=== PATIENT | female | born 1990 | race Caucasian/White ===

== ENCOUNTER 2018-01-22 22:37 | Emergency (ER) | payer MEDICAID, SELFPAY ==
[2018-01-22 22:37] VITALS: BP 157/79; PULSE 84; RESP 16; TEMP 36.6; O2SAT 99; BMI 42.0
--- NOTE | 2018-01-22 23:58 | ED.DCSUM_ITS ---
- ER Visit Summary Date of Service: 01/22/18 Chief Complaint: Epigastric abdominal pain History of Present Illness: The patient is a 27 F waxing waning epigastric abdominal pain since yesterday. Symptoms worsened after awakening today. Nausea without vomiting. No diarrhea. No melena. No NSAID use. States she will use Tylenol. Similar symptoms prior to get started on omeprazole, saw her PCP had this increased to 40 mg. Denies alcohol or illicit drug use. Tobacco history. No spicy foods. No urine symptoms. No chest pain. Physical Examination: General: Alert and oriented ?3, no acute distress HEENT: Normocephalic, atraumatic. Moist mucosa membranes Neck: supple, nontender. Cardiovascular: Regular rate and rhythm, no murmurs Respiratory: Normal breath sounds, symmetric, no distress Abdomen: Soft, nontender, nondistended Extremities: Nontender, no edema, pulses intact ?4 Neuro: no focal neurological deficits. Test Results: [] Emergency Department Course and Treatment: Patient nonsurgical abdomen. History concerns for gastritis symptoms. Denies any melena. Given a GI cocktail, symptoms improved. She will continue her omeprazole, Carafate will be added. She will follow-up with her PCP reevaluation and referral to GI as discussed with previously. She will monitor for melena or hematochezia. Treatment Plan: [] Disposition: Discharge Impression: Acute gastritis This note was generated with [employer] dictation software. It may contain incorrect words, spelling, and punctuation that were not noted in review of the chart prior to signing ED Disposition - Plan for ED Patient: Disposition: Home or Assisted Living Chief Complaint: Abd Pain Diagnosis: Gastritis Instructions: ED PUD Vs Gastritis Prescriptions: Sucralfate [Carafate] 1 gm PO 4X/DAY #560 ml Referrals: Sunil Mack MD [Primary Care Provider] - 3-5 Days
[2018-01-23 00:53] VITALS: BP 142/93; PULSE 68; RESP 16; O2SAT 97
== END 2018-01-23 00:53 | disposition home or self-care (01) ==
LOC: ED 01-23 00:31
PROVIDERS: Emergency Provider Emergency Medicine; Family Provider Family Medicine; PCP Family Medicine
DX: K29.00 Acute gastritis without bleeding (principal); K21.9 Gastro-esophageal reflux disease without esophagitis; F41.9 Anxiety disorder, unspecified; F32.9 Major depressive disorder, single episode, unspecified; Z72.0 Tobacco use; Z79.899 Other long term (current) drug therapy
CPT/HCPCS: 99283

== ENCOUNTER → 2018-03-12 08:13 | Outpatient (CLI) | payer MEDICAID, SELFPAY ==
--- NOTE | 2018-03-12 08:25 | RAD_ITS ---
STUDY: AIR-CONTRAST UPPER GI SERIES. REASON FOR EXAM: Female, 27 years old. Epigastric pain. FLUOROSCOPY TIME (if supplied): (0:09) minutes/seconds TECHNIQUE: The patient ingested barium. Multiple images of the esophagus, stomach and duodenum were obtained. COMPARISON: None. FINDINGS: The esophagus is unremarkable. There is no evidence of obstruction. No mass lesion is seen. The stomach and duodenum are unremarkable. There is no evidence of ulceration. No mass lesion is seen. RAD/Upper GI Series Only IMPRESSION: Unremarkable air-contrast upper GI series. Electronically Signed: Jovany De La Rosa MD at 9:24 EDT Tel [phone], Service support ,
== END ==
PROVIDERS: Family Provider Family Medicine; PCP Family Medicine; Visit Provider Nurse Practitioner Adult Health
DX: R10.13 Epigastric pain (principal)
CPT/HCPCS: 74246

== ENCOUNTER 2018-05-02 16:34 | Emergency (ER) | payer MEDICAID, SELFPAY ==
[2018-05-02 16:37] VITALS: BP 160/92; PULSE 90; PULSE 94; RESP 16; O2SAT 97; O2SAT 98; BMI 38.4
--- NOTE | 2018-05-02 16:46 | RAD_ITS ---
STUDY: X-RAY CHEST REASON FOR EXAM: Female, 27 years old. Chest pain. TECHNIQUE: 2 views COMPARISON: Prior chest radiograph from January 26, 2017 FINDINGS: The lungs are clear and expanded. Calcified granuloma at the right lung base. Normal size heart. Calcified hilar lymph nodes. Normal visualized pulmonary arteries. Normal visualized aortic arch and descending thoracic aorta. Normal visualized thoracic spine. Normal visualized ribs, clavicles, and shoulders. There is no demonstrated abnormality of the visualized soft tissue structures of the upper abdomen. RAD/Chest PA and Lateral IMPRESSION: No acute cardiopulmonary findings. Negative for consolidation, focal atelectasis, cardiomegaly or pleural effusion. Stigmata of old granulomatous disease. Electronically Signed: Jeanne Oneal MD at 17:36 EDT , Service support ,
--- NOTE | 2018-05-02 16:46 | EKG12_ITS ---
Test Reason : CP Blood Pressure : / mmHG Vent. Rate : 090 BPM Atrial Rate : 090 BPM P-R Int : 146 ms QRS Dur : 088 ms QT Int : 388 ms P-R-T Axes : 050 033 026 degrees QTc Int : 474 ms Normal sinus rhythm Normal ECG Confirmed by HOPE FREEMAN, MEMO ([id number]), general expeditor AMY CHAVEZ ([id number]) on 05/05/2018 12:56:23 PM Referred By: MAXWELL/KHUSHBU Confirmed By:MEMO ARNETT MD
--- NOTE | 2018-05-02 16:54 | ED.VISSUMM ---
- ER Visit Summary Date of Service: 05/02/18 Chief Complaint: Chest pain History of Present Illness: The patient is a 27 F who presents with chest pain. Started yesterday. It sharp stabbing in the left upper chest and left parasternal area. It does not radiate. No shortness of breath. Nothing makes it better or worse. She does have a history of anxiety and states that she is right in the middle of the panic attack right now. She does have history of a pulmonary embolism last year. It was caused by her smoking and taking oral contraceptive. She is now off of the contraceptive. She took blood thinners for 6 months and stopped those in the middle of September. No other cardiac risk factors. Physical Examination: Vital signs reviewed. HEENT exam unremarkable. Heart is regular rate and rhythm without murmurs. Lungs are clear to auscultation. Chest is tender in the left upper chest area. Abdomen is soft and nontender. Extremities reveal no edema. Skin exam normal. Neurologic exam normal. Test Results: EKG, chest x-ray and d-dimer are normal Emergency Department Course and Treatment: Patient was given naproxen. Her d-dimer is normal. EKG and chest x-ray are also normal. I feel this is likely musculoskeletal. Patient was given naproxen for home. She will follow-up with her PCP Treatment Plan: [] Disposition: Discharge Impression: Chest wall pain This note was generated with [employer] dictation software. It may contain incorrect words, spelling, and punctuation that were not noted in review of the chart prior to signing ED Disposition - Plan for ED Patient: Chief Complaint: Chest Pain Referrals: Sunil Mack MD [Primary Care Provider] -
[2018-05-02] MEDS: Naproxen 500 MG Tablet PO (16:57)
[2018-05-02 17:41] LABS: D-Dimer Quantitative (DVT/PE) < 0.27 FEU/ug/m (0.27-0.49)
--- NOTE | 2018-05-02 17:49 | ED.DEP ---
ED Disposition - Plan for ED Patient: Disposition: Home or Assisted Living Chief Complaint: Chest Pain Instructions: ED Chest Pain NonCardiac Prescriptions: Naproxen [Naprosyn] 500 mg PO BID PRN #20 tab Referrals: Sunil Mack MD [Primary Care Provider] -
[2018-05-02 17:57] VITALS: BP 137/85; PULSE 85; RESP 18; O2SAT 99
== END 2018-05-02 17:58 | disposition home or self-care (01) ==
PROVIDERS: Emergency Provider Emergency Medicine; Family Provider Family Medicine; PCP Family Medicine
DX: R07.89 Other chest pain (principal); F41.9 Anxiety disorder, unspecified; E66.9 Obesity, unspecified; F17.200 Nicotine dependence, unspecified, uncomplicated; Z86.718 Personal history of other venous thrombosis and embolism; Z79.899 Other long term (current) drug therapy
CPT/HCPCS: 71046; 85379; 93005; 99283

== ENCOUNTER 2018-06-05 17:36 | Emergency (ER) | payer MEDICAID, SELFPAY ==
[2018-06-05 17:37] VITALS: BP 165/86; PULSE 80; RESP 18; TEMP 37.1; O2SAT 99; BMI 38.4
--- NOTE | 2018-06-05 17:54 | ED.VISSUMM ---
- ER Visit Summary Date of Service: 06/05/18 Chief Complaint: Midepigastric abdominal pain History of Present Illness: The patient is a 27 F presents to the emergency department midepigastric abdominal pain. Patient's been having symptoms for the past 3 days. She states that she has had the same symptoms in the past. She is on Carafate and omeprazole. She feels it is not helping. She states that when she eats, she gets a sharp stabbing pain in her midepigastric area. It does not radiate to her upper quadrants. She has been nauseated without vomiting. She had one episode of loose watery diarrhea today. She denies any fevers or chills. She denies any history of abdominal surgery. Physical Examination: Vital signs reviewed General: Well-nourished, well-developed Head: Normocephalic, atraumatic Eyes: Pupils equal and reactive, extraocular muscles intact Neck, supple, no lymphadenopathy Heart: Regular rate and rhythm Respiratory: No distress, clear bilaterally Abdomen: Soft, mildly tender in the midepigastric area without rebound or guarding, nondistended, no peritoneal signs Back: Nontender Extremities: Nontender, no edema, no cords Skin: Normal color no rash Neuro: Alert and oriented, no focal or lateralizing deficits Test Results: [] Emergency Department Course and Treatment: The patient symptoms do seem most consistent with acute gastritis. She has burning pain in her midepigastric area with eating. IV was established. Her pain and nausea was treated. She had improvement of her symptoms. Labs were obtained were unremarkable. Her lipase is normal. Patient had marked resolution with a GI cocktail. She is counseled to continue her prescribed medications and avoid spicy and acidic foods. I will add lidocaine solution to help control her acute pain for the next 2 days. She is comfortable this plan of care and will be discharged home. Treatment Plan: [] Disposition: Discharge Impression: 1. Acute gastritis This note was generated with [employer] dictation software. It may contain incorrect words, spelling, and punctuation that were not noted in review of the chart prior to signing ED Disposition - Plan for ED Patient: Chief Complaint: Abd Pain Instructions: ED PUD Vs Gastritis Prescriptions: Lidocaine 2% Viscous [Xylocaine Viscous] 15 ml GT 4X/DAY PRN PRN #14 udc PRN Reason: Abdominal pain Referrals: Sunil Mack MD [Primary Care Provider] -
[2018-06-05 18:34] LABS: Absolute Lymphocyte Count 2.37 X10^3/ul (0.83-4.51); Absolute Neutrophil Count 5.2 X10^3/uL (2.0-7.7); Basophil# 0.02 X10^3/uL; Basophil% 0.2 % (0-1); Differential Indicated SCAN CRITERIA MET; Eosinophil# 0.46 X10^3/uL; Eosinophils% 5.4 % (0-5); Hematocrit 34.5 % (37-47); Hemoglobin 10.5 g/dl (12.0-15.0); Lymphocyte # 2.37 X10^3/ul (4.0); Lymphocyte % 27.6 % (19-41); Mean Corp Hgb Conc 30.4 g/gl (32-36); Mean Corpuscular Hgb 20.4 pg (27.0-32.0); Mean Platelet Vol. 8.9 fl (6.2-12.0); Monocyte# 0.57 X10^3/uL; Monocyte% 6.6 % (0-10); Neutrophil # 5.15 X10^3/uL (2.7-7.7); Neutrophil % 60.1 % (47-70); POSITIVE COUNT NO; POSITIVE DIFFERENTIAL NO; POSITIVE MORPHOLOGY YES; Platelet Count 339 K/mm3 (150-450); RBC Distribution Width CV 21.1 % (11.6-14.6); RBC Distribution Width SD 51.4 fl (35.1-43.9); Red Blood Count 5.15 M/mm3 (4.2-5.4); White Blood Count 8.6 K/mm3 (4.4-11.0)
[2018-06-05] MEDS: 0.9% Normal Saline 1,000 ML 1000 ML IV (18:34)
[2018-06-05] MEDS: Morphine 4 MG/ML Syringe IV (18:35)
[2018-06-05] MEDS: Ondansetron 4 MG/2 ML Vial IV (18:35)
[2018-06-05 18:38] LABS: AST(SGOT) 11 U/L (15-37); Alanine Aminotransfer ALT/SGPT 20 U/L (13-56); Albumin, Serum 3.3 g/dL (3.2-5.0); Alkaline Phosphatase 95 U/L (45-117); Anion Gap 9 (5-15); BUN 10 mg/dL (7-18); Calcium,Total 8.2 mg/dL (8.5-10.1); Chloride 109 mmol/L (98-107); Creatinine, Serum 0.71 mg/dL (0.55-1.02); EST Glomerular Filtration Rate 103 mL/min (>60); Est Glom Filt Rate - Afr Amer 124 mL/min (>60); Estimated Creatinine Clearance 122.18 ml/min; Globulin 3.3 g/dL (2.2-4.2); Glucose 90 mg/dL (74-106); Lipase 106 U/L (73-393); Potassium 3.8 mmol/L (3.5-5.1); Protein, Total 6.6 g/dL (6.4-8.2); Sodium Level 145 mmol/L (136-145)
[2018-06-05 18:43] LABS: Bacteria 0 SEEN /hpf (None Seen); Red Blood Cells-Urine 0 SEEN /hpf (0-5)
[2018-06-05 18:52] LABS: Internal QC Validated? YES +Cl - CLEAR BKGD
[2018-06-05 18:53] LABS: Color, Urine Yellow (Yellow); Glucose, Dipstick Normal (Normal); Ketone-Dipstick Negative (Negative); Leukocyte Esterase-Dipstick 25 /ul (Negative); Nitrite-Dipstick Negative (Negative); Occult Blood-Urine Negative /ul (Negative); Pregnancy, Urine Negative Negative; Protein-Dipstick Negative (Negative); Specific Gravity, Urine 1.015 (1.002-1.030); Urine Bilirubin Dipstick Negative (Negative); Urine Clarity Clear (Clear); Urine Urobilinogen Normal (Normal); Urine pH 6.5 (5.0 - 8.0)
[2018-06-05 19:01] LABS: Anisocytosis RARE; Polychromasia RARE
[2018-06-05 19:02] LABS: Hypochromasia 1+; Microcytosis 1+
[2018-06-05 19:05] LABS: Mucous, Urine 1+ /hpf (<or=2+); Squamous Epithelial Cells - UA 0-5 SEEN /hpf (5-10); White Blood Cells 0-5 SEEN /hpf (0-5)
[2018-06-05] MEDS: Mag Hydrox/Al Hydrox/Simeth 30 ML UDC PO (19:47)
[2018-06-05 20:21] VITALS: BP 140/83; PULSE 75; RESP 18; O2SAT 100
== END 2018-06-05 20:23 | disposition home or self-care (01) ==
LOC: ED 18:21
PROVIDERS: Emergency Provider Emergency Medicine; Family Provider Family Medicine; PCP Family Medicine
DX: K29.00 Acute gastritis without bleeding (principal); K21.9 Gastro-esophageal reflux disease without esophagitis; Z79.899 Other long term (current) drug therapy
CPT/HCPCS: 80053; 81001; 81025; 83690; 85025; 96361; 96374; 96375; 99284; J7030; A4216; J2405

== ENCOUNTER 2018-11-21 14:02 | Emergency (ER) | payer MEDICAID, SELFPAY ==
[2018-11-21 14:06] VITALS: BP 150/88; PULSE 91; RESP 18; TEMP 36.3; O2SAT 99; BMI 40.0
--- NOTE | 2018-11-21 14:15 | ED.DCSUM_ITS ---
- ER Visit Summary Date of Service: 11/21/18 Chief Complaint: Abdominal pain History of Present Illness: The patient is a 28 F who has epigastric abdominal pain. Started yesterday. She describes sharp and stabbing pains in her epigastric region. It does not radiate. She has had nausea without vomiting. Denies diarrhea or constipation. No urinary symptoms. She denies having any abdominal surgeries in the past. She does have a history of GERD. She is currently on a PPI and Carafate that this is not been helping. She went to urgent care and they directed her here. She has a follow-up with her PCP on Friday. Physical Examination: Vital signs reviewed. HEENT exam unremarkable. Heart is regular rate and rhythm without murmurs. Lungs are clear to auscultation. Abdomen is soft with tenderness in the epigastric region. Extremities reveal no edema. Skin exam normal. Neurologic exam normal. Test Results: None performed Emergency Department Course and Treatment: Patient was given a GI cocktail without relief. She was then given Toradol. Her pain is on the epigastric region. She has a history of gastritis and is currently on omeprazole and Carafate. I feel this is likely the same thing. I do not think that this is gallbladder at all. I will treat her with Zantac along with her other meds. She has follow-up with GI in 2 days Treatment Plan: [] Disposition: Discharge Impression: Gastritis This note was generated with [employer] dictation software. It may contain incorrect words, spelling, and punctuation that were not noted in review of the chart prior to signing ED Disposition - Plan for ED Patient: Referrals: Sunil Mack MD [Primary Care Provider] -
[2018-11-21] MEDS: Mag Hydrox/Al Hydrox/Simeth 30 ML UDC PO (14:22)
--- NOTE | 2018-11-21 15:00 | ED.DEP ---
ED Disposition - Plan for ED Patient: Disposition: Home or Assisted Living Instructions: ED PUD Vs Gastritis Prescriptions: Ranitidine [Zantac] 300 mg PO DAILY #30 tab Referrals: Sunil Mack MD [Primary Care Provider] -
[2018-11-21] MEDS: Ketorolac 30 MG/ML Syringe IM (15:06)
[2018-11-21 15:12] VITALS: BP 142/94; PULSE 63; RESP 16; O2SAT 99
== END 2018-11-21 15:14 | disposition home or self-care (01) ==
PROVIDERS: Emergency Provider Emergency Medicine; Family Provider Family Medicine; PCP Family Medicine
DX: K29.70 Gastritis, unspecified, without bleeding (principal); K21.9 Gastro-esophageal reflux disease without esophagitis; Z87.19 Personal history of other diseases of the digestive system; Z72.0 Tobacco use
CPT/HCPCS: 96372; 99283

== ENCOUNTER 2019-02-22 05:46 | Day surgery (SDC) | payer MEDICAID, SELFPAY ==
[2019-02-22] VITALS (7 sets, daily range): BP systolic 111–137; BP diastolic 63–87; PULSE 65–80; RESP 14–18; TEMP 36.3–36.8; O2SAT 91–97; BMI 42.1
[2019-02-22 06:21] LABS: Internal QC Validated? YES +Cl - CLEAR BKGD; Pregnancy, Urine Negative Negative
--- NOTE | 2019-02-22 07:26 | PCM.DC.GB ---
Discharge Diet: No Restrictions - drink plenty of fluids, avoid carbonated beverages for a couple of days Discharge Activity: Return to Normal Activity, May not drive while taking narcotic pain medications. Lifting Restrictions: no lifting greater than 20 pounds for 2 weeks Call your doctor if your incision/area has: Continuous Slow Oozing, Foul Smelling Discharge Call your doctor if you observe: Fever of 101 or Higher Additional Dressing/Incision Instructions:: Leave dressings in place. may get wet in shower. Do not soak - no tub baths/swimming Additional Instructions: Recommended pain medication regimen: take 600 mg ibuprofen, then in 3 hours take 650 mg of acetaminophen, then in three hours take 600 mg of ibuprofen, then in three hours take 650 mg of acetaminophen, etc. for 1-2 days take narcotic pain medications for breakthrough pain and at night Allergies/Adverse Reactions: Allergies almond Allergy (Verified 02/22/19 07:40) Food Allergy hydrocodone [From [place]] Adverse Reaction (Verified 02/22/19 07:40) Itching Medications to take at Discharge Loratadine 10 mg PO DAILY 02/11/17 Buspirone HCl 7.5 mg PO BID 08/20/17 Desvenlafaxine Succinate [Pristiq] 50 mg PO QHS 10/28/17 Omeprazole [Prilosec] 40 mg PO DAILY 10/28/17 Sucralfate [Carafate] 1 gm PO 4X/DAY #560 ml 01/23/18 Ranitidine [Zantac] 300 mg PO DAILY #30 tab 11/21/18 Dicyclomine HCl 20 mg PO TID 02/15/19 Oxycodone [Oxyir] 5 mg PO Q8H PRN PRN 5 Days #15 tab 02/22/19 The following prescriptions were given: Oxycodone [Oxyir] 5 mg PO Q8H PRN PRN 5 Days #15 tab PRN Reason: Mod-Severe Pain (-07/22) Primary Care Physician: Sunil Mack MD [Primary Care Provider] - Test Results: Test results from this visit will be discussed in further detail at your follow-up appointment, if applicable. Please Follow Up With: Ursula Calloway MD - call When: to be seen in 7-10 days, please call for date and time, thank you
--- NOTE | 2019-02-22 07:29 | DCINST_ITS ---
Discharge Diet: No Restrictions - drink plenty of fluids, avoid carbonated beverages for a couple of days Discharge Activity: Return to Normal Activity, May not drive while taking narcotic pain medications. Lifting Restrictions: no lifting greater than 20 pounds for 2 weeks Call your doctor if your incision/area has: Continuous Slow Oozing, Foul Smelling Discharge Call your doctor if you observe: Fever of 101 or Higher Additional Dressing/Incision Instructions:: Leave dressings in place. may get wet in shower. Do not soak - no tub baths/swimming Additional Instructions: Recommended pain medication regimen: take 600 mg ibuprofen, then in 3 hours take 650 mg of acetaminophen, then in three hours take 600 mg of ibuprofen, then in three hours take 650 mg of acetaminophen, etc. for 1-2 days take narcotic pain medications for breakthrough pain and at night Allergies/Adverse Reactions: Allergies almond Allergy (Verified 02/22/19 07:40) Food Allergy hydrocodone [From [place]] Adverse Reaction (Verified 02/22/19 07:40) Itching Medications to take at Discharge Loratadine 10 mg PO DAILY 02/11/17 Buspirone HCl 7.5 mg PO BID 08/20/17 Desvenlafaxine Succinate [Pristiq] 50 mg PO QHS 10/28/17 Omeprazole [Prilosec] 40 mg PO DAILY 10/28/17 Sucralfate [Carafate] 1 gm PO 4X/DAY #560 ml 01/23/18 Ranitidine [Zantac] 300 mg PO DAILY #30 tab 11/21/18 Dicyclomine HCl 20 mg PO TID 02/15/19 Oxycodone [Oxyir] 5 mg PO Q8H PRN PRN 5 Days #15 tab 02/22/19 The following prescriptions were given: Oxycodone [Oxyir] 5 mg PO Q8H PRN PRN 5 Days #15 tab PRN Reason: Mod-Severe Pain (-07/22) Primary Care Physician: Sunil Mack MD [Primary Care Provider] - Test Results: Test results from this visit will be discussed in further detail at your follow- up appointment, if applicable. Please Follow Up With: Ursula Calloway MD - call When: to be seen in 7-10 days, please call for date and time, thank you
--- NOTE | 2019-02-22 07:30 | GALL_PTH ---
PATIENT: NAHEED BENNETT [place] [facility] [place][id number] AGE/SX: 28/F ROOM: RE02/22/[address]: Dr. Ursula Calloway MD : [id number] BED: DIS: 02/22/2019 SPEC #: [id number] RECD: 02/22/19 09:18 STATUS: ERNIE VERGARA #: [id number] MIGUE: 02/22/19 07:[address]: Ursula Calloway DEPT: SURGICAL PATHOLOGY RECD BY: Lew Farmer ENTERED: 02/22/19 10:02 SP TYPE: DANILO MCDUFFIE DR: Dr. Sunil Mack MD Tissues: Gallbladder, NOS Procedures: Surgery Specimen Level III HEADER OPERATION: Laparoscopic, cholecystectomy with IOC PRE-OP DIAGNOSIS: Abdominal pain, abnormal biliary HIDA scan, morbid obesity TISSUE SUBMITTED: Gallbladder MICROSCOPIC DIAGNOSIS Gallbladder, cholecystectomy: Chronic cholecystitis. No stones are identified in the container or in the gallbladder. SJ:nataly 02/23/19 MICROSCOPIC DESCRIPTION Slides are reviewed. GROSS DESCRIPTION Received is one container labeled with the patient's name and designated gallbladder. The specimen consists of a gallbladder measuring 6.5 cm in length and 3 cm in diameter. The external surface is pink-song, smooth and glistening for the most part. Focally it is granular, hemorrhagic and contains cautery artifact. The gallbladder contains green-yellow mucoid bile. No stones are identified in the container or in the gallbladder. The mucosa is bile-stained and without any mass lesions. The gallbladder wall measures up to 0.5 cm in thickness. A focal area shows increased amount of subserosal fat. Supervisor Cartography sections from the gallbladder and the cystic duct are submitted in one cassette. / ALIYA:nataly 02/22/19 TC:3 [facility]: [id number]
[2019-02-22] MEDS: Bupiv/Epi 0.25% 30 ML Vial (07:42)
--- NOTE | 2019-02-22 08:00 | RAD_ITS ---
STUDY: INTRAOPERATIVE CHOLANGIOGRAM. REASON FOR EXAM: Female, 28 years old. Laparoscopic cholecystectomy. FLUOROSCOPY TIME (if supplied): (0:47) minutes/seconds. One image was obtained. TECHNIQUE: An intraoperative cholangiogram was performed by the surgeon. Imaging was submitted. COMPARISON: None. FINDINGS: The visualized intrahepatic biliary ducts are unremarkable. The common bile duct is not dilated. No intraluminal filling defect is seen. There is free flow of contrast into the duodenum. RAD/Cholangiogram/ O R,Initial IMPRESSION: Unremarkable intraoperative cholangiogram. Electronically Signed: Jovany De La Rosa, at 9:21 EDT , Service support ,
--- NOTE | 2019-02-22 08:26 | OP.PCM_ITS ---
Report of Operation Date of Procedure: 02/22/19 Pre-Operative Diagnosis: right upper quadrant abdominal pain, abnormal HIDA scan Post-Operative Diagnosis: same as above Surgery/Procedure Performed:: laparoscopic cholecystectomy with cholangiograms Description of Surgical Findings:: fatty infiltration of the liver, large amount of visceral fat, cholangiogram was normal social and political studies professor: Ezekiel Elaine Type of Anesthesia:: General Anesthesiologist: Amna Caldera Specimen's removed: gallbladder and contents Estimated Blood Loss (mL): < 10 ml Fluids Replaced: 800 ml RL Description of Procedure: After informed consent was given, the patient was brought to the Operating Room. Appropriate time out protocol was followed. She was then placed in the supine position. The patient was then placed under general endotracheal anesthesia. The abdomen was then prepped with a sterile surgical skin preparation and sterile surgical drapes were placed. A skin fold superior to the umbilical dimple was grasped with penetrating clamps and the skin and subcutaneous tissues were infiltrated with 0.5% marcaine with epinephrine. A skin incision was then made with a 15 blade scalpel. The anterior abdominal wall was elevated and a Veress needle was carefully inserted into the intraabdominal cavity. It was checked to be in the proper position with a normal saline drop test. A CO2 pneumoperitoneum was then created. Once this was achieved, then the Veress needle was removed and an 11mm trocar was placed in its stead. A 10mm laparoscope was then inserted into the trocar and careful attention was directed to the intraabdominal contents. There was no evidence of injury to any intraabdominal organs from insertion of the Veress needle or the trocar. Under direct visualization, a 5mm subxiphoid trocar and two lateral 5mm right subcostal trocars were placed. The skin and subcutaneous tissues at these sites were infiltrated with 0.5% marcaine with epinephrine prior to placement of these trocars. Attention was then directed to the right upper quadrant of the abdomen. Graspers were placed in the lateral trocars to grasp the distal aspect of the gallbladder and direct it cephalad and to grasp the gallbladder at Balderas?s pouch and direct it laterally. Dissection then began on the proximal gallbladder continuing down to the area of the triangle of Calot to bluntly dissect out the cystic duct. The neck of the gallbladder was identified and blunt dissection continued to dissect out a segment of the cystic duct. A clip was then placed on the neck of the gallbladder. A small ductotomy was then made. A Ranfac catheter was brought in through a separate skin incision and placed into the cystic duct. An intraoperative cholangiogram was performed under fluoroscopy. The xray revealed no lesions in the common bile duct, arborization of the biliary tree, and good flow into the duodenum. The Ranfac catheter was then removed and two clips were placed proximal to the ductotomy and the cystic duct was then transected. The cystic artery was visualized and bluntly isolated and then two clips were placed proximally and one clip distally and then it was transected between the proximal and distal clips. The gallbladder was then from the liver bed using electrocautery and thus able to be brought out of the umbilical port. It was then forwarded to pathology for analysis. The liver bed was carefully examined. There was no evidence of bile leakage or bleeding. The cystic duct stump and cystic artery stump had their clips intact and there was no evidence of bile leakage or bleeding. The remainder of the abdomen was grossly normal. The CO2 was released and all trocars removed intact. The periumbilical fascia was approximated with a [id number] 0 vicryl suture. All skin incision were closed with 4-0 monocryl in a subdermal fashion. Cavilol and Steristrips were used to reinforce the skin closure. Sterile dressings were applied to all wounds. The patient was extubated and brought to the Recovery Room in stable condition. - Complications none noted - Admit VTE Documentation VTE Present on Admission: Yes VTE Mechan Device Prophylaxis: SCD's
[2019-02-22] MEDS: oxyCODONE 5 MG Tablet PO (09:42)
== END 2019-02-22 10:33 | disposition home or self-care (01) ==
LOC: SDC 05:47 → AC 05:48
PROVIDERS: Anesthesiology; Family Provider Family Medicine; PCP Family Medicine; Referring Provider Surgery; Visit Provider Surgery
PROC: (CPT 47610; principal; 2019-02-22 07:10)
DX: K81.1 Chronic cholecystitis (principal); K76.0 Fatty (change of) liver, not elsewhere classified; K21.9 Gastro-esophageal reflux disease without esophagitis; F32.9 Major depressive disorder, single episode, unspecified; F41.9 Anxiety disorder, unspecified; F17.210 Nicotine dependence, cigarettes, uncomplicated; E66.01 Morbid (severe) obesity due to excess calories; Z68.41 Body mass index [BMI] 40.0-44.9, adult; Z79.899 Other long term (current) drug therapy; Z86.711 Personal history of pulmonary embolism
CPT/HCPCS: 47563; 74300; 76000; 81025; 88304; J7120; J2405

== ENCOUNTER 2019-02-24 19:25 | Emergency (ER) | payer MEDICAID, SELFPAY ==
[2019-02-22 06:19] VITALS: BMI 42.1
[2019-02-24 19:26] VITALS: BP 164/96; PULSE 78; RESP 16; TEMP 37.1; O2SAT 100; BMI 41.6
--- NOTE | 2019-02-24 20:48 | CT_ITS ---
STUDY: CT ABDOMEN AND PELVIS WITH CONTRAST REASON FOR EXAM: Female, 28 years old. Mid umbilical and upper abdominal pain and nausea. Status post cholecystectomy on 02/22/2019. RADIATION DOSAGE (If Supplied By Facility): CTDIvol = ( 16.95 ) mGy, DLP = ( 1284.76 ) mGycm TECHNIQUE: Transaxial images were obtained from the dome of the diaphragm to the symphysis pubis with oral contrast. 100ML IV/Isovue 300 was administered. Sagittal and coronal images were reconstructed. Individualized dose optimization techniques were used for this CT. COMPARISON: None. FINDINGS: Minimal posterior bibasilar residual atelectatic changes. Partially calcified granuloma at the right lung base and small calcified lymph nodes of the right hilum. Normal liver. Minimal postoperative changes in the gallbladder fossa. Nondistended bile ducts. Normal spleen. Normal pancreas. Normal bilateral adrenal glands. Normal right kidney. Normal left kidney. Normal visualized stomach. Normal small intestine. Normal colon. The appendix is visualized and appears normal. Normal abdominal aorta. Normal inferior vena cava. Normal retroperitoneum. Normal urinary bladder. Negative for pelvic mass. Minimal free fluid of the pelvis. Few isolated intraperitoneal air bubbles and air in the anterior abdominal wall without a focal fluid collection. Normal osseous structures. CT/Abdomen/Pelvis WITH Contrast IMPRESSION: Normal postoperative changes with minimal residual density in the all bladder fossa without focal fluid collection. Negative for bile duct distention. Small amount of free intraperitoneal air and air in the anterior abdominal wall at the umbilicus with mild edematous changes of the umbilicus. These findings would not be considered abnormal 2 days post cholecystectomy. Negative for evidence of bowel obstruction. Oral contrast has extended through the small bowel and is arriving in the colon and has progressed as far as the splenic flexure. Normal kidneys bilaterally without hydronephrosis or stones. Unremarkable urinary bladder. Negative for pelvic mass. Minimal free fluid of the pelvis. Mild residual bibasilar atelectasis. Stigmata of old granulomatous disease. Electronically Signed: Jeanne Oneal MD at 22:57 EDT , Service support ,
[2019-02-24] MEDS: 0.9% Normal Saline 1,000 ML 125 ML IV (21:04)
[2019-02-24] MEDS: Ondansetron 4 MG/2 ML Vial IV (21:04)
[2019-02-24] MEDS: Morphine 4 MG/ML Syringe IV (21:04)
[2019-02-24 21:24] LABS: Absolute Lymphocyte Count 2.96 X10^3/ul (0.83-4.51); Absolute Neutrophil Count 5.5 X10^3/uL (2.0-7.7); Basophil# 0.03 X10^3/uL; Basophil% 0.3 % (0-1); Eosinophil# 0.42 X10^3/uL; Eosinophils% 4.4 % (0-5); Hematocrit 33.3 % (37-47); Hemoglobin 10.1 g/dl (12.0-15.0); Lymphocyte # 2.96 X10^3/ul (4.0); Lymphocyte % 31.2 % (19-41); Mean Corp Hgb Conc 30.3 g/gl (32-36); Mean Corpuscular Volume 65.8 fL (81-99); Mean Platelet Vol. 8.8 fl (6.2-12.0); Monocyte# 0.63 X10^3/uL; Monocyte% 6.6 % (0-10); Neutrophil # 5.45 X10^3/uL (2.7-7.7); Neutrophil % 57.4 % (47-70); Platelet Count 379 K/mm3 (150-450); RBC Distribution Width CV 20.3 % (11.6-14.6); Red Blood Count 5.06 M/mm3 (4.2-5.4); White Blood Count 9.5 K/mm3 (4.4-11.0)
[2019-02-24 21:35] LABS: Differential Indicated SCAN CRITERIA MET; POSITIVE COUNT NO; POSITIVE DIFFERENTIAL NO; POSITIVE MORPHOLOGY YES
[2019-02-24 21:54] LABS: AST(SGOT) 13 U/L (15-37); Alanine Aminotransfer ALT/SGPT 26 U/L (13-56); Albumin, Serum 3.1 g/dL (3.2-5.0); Alkaline Phosphatase 89 U/L (45-117); Anion Gap 5 (5-15); BUN 10 mg/dL (7-18); BUN/Creat Ratio 18.1 RATIO (10-20); Chloride 110 mmol/L (98-107); Creatinine, Serum 0.55 mg/dL (0.55-1.02); EST Glomerular Filtration Rate 137 mL/min (>60); Est Glom Filt Rate - Afr Amer 165 mL/min (>60); Estimated Creatinine Clearance 156.31 ml/min; Globulin 3.2 g/dL (2.2-4.2); Glucose 89 mg/dL (74-106); Lipase 69 U/L (73-393); Potassium 3.9 mmol/L (3.5-5.1); Protein, Total 6.3 g/dL (6.4-8.2); Sodium Level 140 mmol/L (136-145)
[2019-02-24 21:55] LABS: Bacteria 0 SEEN /hpf (None Seen); Red Blood Cells-Urine 0 SEEN /hpf (0-5)
[2019-02-24 21:58] LABS: Anisocytosis 2+; Differential Comment SCANNED; Macrocytosis RARE; Ovalocyte 1+
[2019-02-24 21:59] LABS: Color, Urine Yellow (Yellow); Glucose, Dipstick Normal (Normal); Ketone-Dipstick Negative (Negative); Leukocyte Esterase-Dipstick 100 /ul (Negative); Nitrite-Dipstick Negative (Negative); Occult Blood-Urine Negative /ul (Negative); Protein-Dipstick Negative (Negative); Specific Gravity, Urine 1.015 (1.002-1.030); Urine Bilirubin Dipstick Negative (Negative); Urine Clarity Clear (Clear); Urine Urobilinogen Normal (Normal); Urine pH 6.5 (5.0 - 8.0)
[2019-02-24 22:00] VITALS: BP 139/83; PULSE 62; RESP 16; O2SAT 99
[2019-02-24 22:04] LABS: Mucous, Urine 1+ /hpf (<or=2+); Squamous Epithelial Cells - UA 5-10 SEEN /hpf (5-10); White Blood Cells 0-5 SEEN /hpf (0-5)
--- NOTE | 2019-02-24 23:24 | ED.VISSUMM ---
- ER Visit Summary Date of Service: 02/24/19 Chief Complaint: [Abdominal pain] History of Present Illness: The patient is a 28 F [presents the emergency department with abdominal pain that started 3 days ago. Patient had a cholecystectomy done by Dr. Ursula Calloway 3 days ago. Patient continues to have pain in the upper abdomen as well as lower abdomen. Patient denies any fever. She denies any vomiting. She had a bowel movement yesterday. Patient denies any blood in her stool or black tarry stool. She denies urinary symptoms.] Physical Examination: [HEENT-PERRLA, EOMI. Cranial nerves II through XII grossly intact. TMs clear. Mucous membranes moist. No adenopathy. Cardiovascular-regular rate and rhythm without murmur or ectopy Lungs-clear to auscultation, chest wall stable without crepitus or subcu emphysema Abdomen-normoactive bowel sounds, soft. Patient has tenderness palpation of the right upper quadrant epigastric region. There is no rebound, rigidity, or perineal signs. Over the umbilicus there is a dressing with some surrounding faint erythema and some ecchymosis and bruising noted. There is no purulent drainage noted. Extremities-intact ?4, normal range of motion, normal pulses, atraumatic] Test Results: [CBC with differential obtained was normal. Chemistries unremarkable. LFTs were normal. Lipase normal. Urinalysis normal. CT scan of the abdomen pelvis obtained showed normal postsurgical changes otherwise nothing acute or concerning.] Emergency Department Course and Treatment: [Patient was medicated with morphine and Zofran. Patient was given normal saline. Case was discussed with Dr. Hussain Mckeon who is on-call for Dr. Ursula Calloway who asked the patient call their office for an evaluation tomorrow morning.] Treatment Plan: [Follow-up with general surgery tomorrow.] Disposition: [Discharged home in stable condition. Patient advised to continue with her current pain medication. Patient to return if fever, worsening pain, vomiting, or condition should worsen anyway.] Impression: [Postop pain status post cholecystectomy] This note was generated with [employer] software. It may contain incorrect words, spelling, and punctuation that were not noted in review of the chart prior to signing ED Disposition - Plan for ED Patient: Referrals: Sunil Mack MD [Primary Care Provider] -
--- NOTE | 2019-02-24 23:27 | ED.DEP ---
ED Disposition - Plan for ED Patient: Instructions: ED Post Op Pain Referrals: Sunil Mack MD [Primary Care Provider] - Ursula Calloway MD [STAFF PHYSICIAN] - 1 Day
[2019-02-25 00:13] VITALS: BP 138/84; PULSE 72; RESP 15; O2SAT 97
== END 2019-02-25 00:14 | disposition home or self-care (01) ==
LOC: ED 20:57
PROVIDERS: Emergency Provider Emergency Medicine; Family Provider Family Medicine; PCP Family Medicine
DX: G89.18 Other acute postprocedural pain (principal); R10.13 Epigastric pain; R10.11 Right upper quadrant pain; Z98.890 Other specified postprocedural states; Z72.0 Tobacco use
CPT/HCPCS: 74177; 80053; 81001; 83690; 85025; 96361; 96374; 96375; 99284; J7030; Q9967; J2405

== ENCOUNTER 2019-07-04 21:19 | Emergency (ER) | payer OTHER, SELFPAY ==
[2019-07-04 21:20] VITALS: BP 160/124; PULSE 98; RESP 16; TEMP 37.2; O2SAT 99; BMI 42.9
[2019-07-04] MEDS: Ondansetron 4 MG/2 ML Vial IV (21:59)
[2019-07-04] MEDS: Morphine 4 MG/ML Syringe IV (22:00)
[2019-07-04] MEDS: 0.9% Normal Saline 1,000 ML 150 ML IV (22:00)
[2019-07-04 22:01] LABS: Absolute Lymphocyte Count 2.88 X10^3/uL (0.83-4.51); Absolute Neutrophil Count 6.7 X10^3/uL (2.0-7.7); Basophil# 0.06 X10^3/uL; Basophil% 0.6 % (0-1); Eosinophil# 0.32 X10^3/uL; Hematocrit 36.3 % (37-47); Hemoglobin 10.4 g/dL (12.0-15.0); Lymphocyte # 2.88 X10^3/ul (4.0); Lymphocyte % 27.1 % (19-41); Mean Corp Hgb Conc 28.7 g/dL (32-36); Mean Corpuscular Hgb 19.2 pg (27.0-32.0); Mean Corpuscular Volume 67.1 fL (81-99); Mean Platelet Vol. 8.8 fl (6.2-12.0); Monocyte# 0.65 X10^3/uL; Monocyte% 6.1 % (0-10); NRBC Flagged by Analyzer 0 % (0-5); Neutrophil # 6.68 X10^3/uL (2.7-7.7); Neutrophil % 62.9 % (47-70); POSITIVE MORPHOLOGY YES; Platelet Count 386 K/mm3 (150-450); RBC Distribution Width SD 47.8 fl (35.1-43.9); Red Blood Count 5.41 M/mm3 (4.2-5.4); White Blood Count 10.6 K/mm3 (4.4-11.0)
[2019-07-04 22:15] LABS: Internal QC Validated? YES +Cl - CLEAR BKGD; Pregnancy, Serum, hCG Quali. NEGATIVE Negative
[2019-07-04 22:22] LABS: AST(SGOT) 9 U/L (15-37); Alanine Aminotransfer ALT/SGPT 17 U/L (13-56); Albumin, Serum 3.4 g/dL (3.2-5.0); Alkaline Phosphatase 107 U/L (45-117); Anion Gap 3 (5-15); BUN 11 mg/dL (7-18); BUN/Creat Ratio 16.2 RATIO (10-20); Bilirubin, Direct 0.12 mg/dL (0.00-0.30); Calcium,Total 8.4 mg/dL (8.5-10.1); Chloride 109 mmol/L (98-107); Creatinine, Serum 0.68 mg/dL (0.55-1.02); EST Glomerular Filtration Rate 108 mL/min (>60); Est Glom Filt Rate - Afr Amer 131 mL/min (>60); Estimated Creatinine Clearance 122.03 ml/min; Globulin 3.6 g/dL (2.2-4.2); Glucose 78 mg/dL (74-106); Lipase 77 U/L (73-393); Potassium 3.8 mmol/L (3.5-5.1); Sodium Level 140 mmol/L (136-145)
[2019-07-04 22:28] LABS: Anisocytosis 1+; Differential Comment SCANNED; Differential Indicated SCAN CRITERIA MET
[2019-07-04 22:29] LABS: Microcytosis 1+; Ovalocyte 1+
--- NOTE | 2019-07-04 23:21 | ED.VIS.GEN ---
History of Present Illness Chief Complaint: Abd Pain Detail of Chief Complaint: Epigastric abdominal pain Informant: Patient Onset: Days Context: Gradual Onset Timing: Waxes and wanes Current Severity: Moderate Maximum Severity: Moderate Narrative: Patient presents with epigastric abdominal pain for the past 3 days. She is a history of reflux and takes omeprazole, ranitidine, Bentyl, and Carafate. She had a cholecystectomy earlier this year. She states pain is not changed with food. She denies fever or chills. She is had no nausea, vomiting, or diarrhea. Past Medical History - Allergies and Home Meds Allergies/Adverse Reactions: Allergies almond Allergy (Verified 07/04/19 21:21) Food Allergy hydrocodone [From [place]] Adverse Reaction (Verified 07/04/19 21:21) Itching Primary Care Physician: Sunil Mack MD [Primary Care Provider] - Dahlia Carias [NON-STAFF] - As soon as possible Prior records reviewed: Yes Past Medical History: - - Reviewed Surgical History: no surgical history Smoking Status: Current every day smoker - Family History Maternal Family History: Reports: Hypertension, - - Pulmonary embolism. Paternal Family History: Reports: Diabetes Review of Systems General: Denies: Chills, Fever Eyes: Denies: Visual changes - bilaterally ENT: Denies: Bilateral ear pain Cardiovascular: Denies: Chest pain Respiratory: Denies: Dyspnea, Cough Gastrointestinal: Reports: Abdominal pain. Denies: Nausea, Vomiting, Diarrhea, Constipation Genitourinary: Denies: Dysuria Musculoskeletal: Denies: Neck pain, Back pain, Extremity Pain Skin: Denies: Wounds Neurological: Denies: Headache Endocrine: Denies: Polyuria, Polydipsia Hematologic: Denies: Easy bruising Allergy: Denies: Uticaria Physical Exam Vital Signs/Narrative: Vital Signs Temp Pulse Resp BP Pulse Ox 07/04/19 21:20 98.9 F 98 16 160/124 H 99 Inital Vital Signs reviewed: Yes General: Well nourished, Well developed Eyes: EOMI ENT: Moist mucous membranes Neck: Supple Cardiovascular: Regular rate, Regular rhythm Respiratory: No distress, CTA bilaterally Abdomen: Soft, Normal bowel sounds, Tender - Mild epigastric tenderness palpation.. Negative for: Guarding, Rebound tenderness Back: Nontender Extremities: Nontender Skin: Normal color, No rash Neurological: Alert, Oriented x3 Psychological: Normal affect Diagnostic/Tx/Re-eval Laboratory Results 07/04/19 07/04/19 07/04/19 21:54 21:54 21:54 WBC 10.6 RBC 5.41 H Hgb 10.4 L Hct 36.3 L MCV 67.1 L MCH 19.2 L MCHC 28.7 L RDW Std Deviation 47.8 H RDW Coeff of Diana 21.0 H Plt Count 386 MPV 8.8 Immature Gran % (Auto) 0.300 Neut % (Auto) 62.9 Lymph % (Auto) 27.1 [place] % (Auto) 6.1 Eos % (Auto) 3.0 Baso % (Auto) 0.6 Absolute Neuts (auto) 6.7 Absolute Lymphs (auto) 2.88 Nucleated RBC % 0 Differential Comment SCANNED Anisocytosis 1+ Microcytosis 1+ Ovalocytes 1+ Sodium 140 Potassium 3.8 Chloride 109 H Carbon Dioxide 28.0 Anion Gap 3 L BUN 11 Creatinine 0.68 Estim Creat Clear Calc 122.03 Est GFR (MDRD) Af Amer 131 Est GFR (MDRD) Non-Af 108 BUN/Creatinine Ratio 16.2 Glucose 78 Calcium 8.4 L Total Bilirubin 0.10 L Direct Bilirubin 0.12 AST 9 L ALT 17 Alkaline Phosphatase 107 Total Protein 7.0 Albumin 3.4 Globulin 3.6 Lipase 77 Serum , Qual NEGATIVE - Medical Decision Making Patient is initially given morphine, Zofran, IV fluids. On repeat evaluation patient continues to complain of epigastric pain, but appears quite comfortable. I offered her a GI cocktail but she declined. She is already on multiple agents for her stomach. I encouraged her to contact her PCP tomorrow morning so she can review when her last endoscopy was performed to see if this needs to be repeated. ED Disposition - Plan for ED Patient: Disposition: Home or Assisted Living Diagnosis: Epigastric pain Instructions: EPIGASTRIC PAIN (Uncertain cause) Referrals: Sunil Mack MD [Primary Care Provider] - Dahlia Carias [NON-STAFF] - As soon as possible
[2019-07-04] MEDS: HYDROmorphone 0.5 MG/0.5 ML SYRINGE IV (23:32)
[2019-07-04 23:48] VITALS: BP 136/81; PULSE 74; RESP 18; O2SAT 100
== END 2019-07-04 23:50 | disposition home or self-care (01) ==
PROVIDERS: Emergency Provider Emergency Medicine; Family Provider Family Medicine; PCP Family Medicine
DX: R10.13 Epigastric pain (principal); F17.200 Nicotine dependence, unspecified, uncomplicated
CPT/HCPCS: 80048; 80076; 83690; 84703; 85025; 96361; 96374; 96375; 99283; A4216; J2405

== ENCOUNTER 2020-10-07 00:26 | Emergency (ER) | payer OTHER, SELFPAY ==
[2020-10-07 00:26] VITALS: BP 151/91; PULSE 83; RESP 18; TEMP 36.7; O2SAT 20; BMI 36.5
--- NOTE | 2020-10-07 00:41 | ED.DCSUM_ITS ---
History of Present Illness Chief Complaint: Headache Narrative: This patient is a 29-year-old female who presents with a headache. This is been present for 5 days and has been gradually worsening. She completely ends of a severe bitemporal and retro-orbital headache which is worse on the right. She also developed a URI-like illness with sinus pressure and congestion 12 days ago but states the symptoms of actually been improving. No fevers. No cough. No difficulty breathing. No vomiting or diarrhea. No numbness tingling weakness or visual changes. She is not anticoagulated. No head injury. Past Medical History - Allergies and Home Meds Allergies/Adverse Reactions: Allergies almond Allergy (Verified 10/07/20 00:31) Food Allergy hydrocodone [From [place]] Adverse Reaction (Verified 10/07/20 00:31) Itching Primary Care Physician: Sunil Mack MD [Primary Care Provider] - Past Medical History: - - Depression and anxiety Surgical History: no surgical history Smoking Status: Current every day smoker - Family History Maternal Family History: Reports: Hypertension, - - Pulmonary embolism. Paternal Family History: Reports: Diabetes Review of Systems All systems negative except as indicated General: Denies: Fever Eyes: Denies: Visual changes - bilaterally ENT: Reports: - - Sinus congestion/pressure Cardiovascular: Denies: Chest pain Respiratory: Denies: Dyspnea, Cough Gastrointestinal: Denies: Nausea, Vomiting, Diarrhea Skin: Denies: Rash Neurological: Reports: Headache Hematologic: Denies: Easy bruising Allergy: Denies: Uticaria Physical Exam Vital Signs/Narrative: Vital Signs Temp Pulse Resp BP Pulse Ox 10/07/20 00:26 98.1 F 83 18 151/91 H 20 Inital Vital Signs reviewed: Yes General: Well nourished, Well developed Head: Normocephalic Eyes: Perrl, EOMI ENT: Moist mucous membranes, - - No nasal discharge Neck: Supple, - - No nuchal rigidity or meningismus Cardiovascular: Regular rate, Regular rhythm Respiratory: No distress, CTA bilaterally Abdomen: Soft Skin: Normal color. Negative for: Rash Neurological: Alert, - - Normal strength and sensation no focal or lateralizing neurological deficits Psychological: Normal affect Diagnostic/Tx/Re-eval - Medical Decision Making Patient was initially treated with IV fluids, Reglan, Toradol. She had mild improvement of symptoms. She was then given IV Decadron and Depacon and reports moderate improvement. Her headache is at a tolerable level. She wishes to be discharged. She was advised to follow-up as an outpatient. She understands to return for new or worsening symptoms. ED Disposition - Plan for ED Patient: Disposition: Home or Assisted Living Diagnosis: Headache Instructions: ED Headache Unspecified Referrals: Sunil Mack MD [Primary Care Provider] -
[2020-10-07] MEDS: 0.9% Normal Saline 1,000 ML 999 ML IV (00:48)
[2020-10-07] MEDS: Metoclopramide 10 MG/2 ML Vial IV (00:50)
[2020-10-07] MEDS: Ketorolac 30 MG/ML Syringe IV (00:50)
[2020-10-07] MEDS: dexAMETHasone 10 MG/ML Vial IV (01:39)
[2020-10-07 03:01] VITALS: BP 145/84; PULSE 81; RESP 18; O2SAT 99
== END 2020-10-07 03:02 | disposition home or self-care (01) ==
PROVIDERS: Emergency Provider Emergency Medicine; PCP Family Medicine
DX: R51.9 Headache, unspecified (principal); F32.9 Major depressive disorder, single episode, unspecified; F41.9 Anxiety disorder, unspecified; F17.200 Nicotine dependence, unspecified, uncomplicated; Z79.899 Other long term (current) drug therapy
CPT/HCPCS: 96361; 96365; 96375; 99283; J7030; A4216

== ENCOUNTER → 2021-01-26 11:33 | Outpatient (CLI) | payer OTHER, SELFPAY ==
[2021-02-01 03:06] LABS: Alternaria tenuis <0.10 kU/L (Class 0); Ash, White <0.10 kU/L (Class 0); Aspergillus fumigatus <0.10 kU/L (Class 0); Bermuda Grass <0.10 kU/L (Class 0); Birch <0.10 kU/L (Class 0); Black Walnut <0.10 kU/L (Class 0); Cat Hair / Dander,Stand <0.10 kU/L (Class 0); Cedar, Mountain <0.10 kU/L (Class 0); Cladosporium herbarum <0.10 kU/L (Class 0); Cockroach, American <0.10 kU/L (Class 0); Cottonwood <0.10 kU/L (Class 0); D farinae Mite <0.10 kU/L (Class 0); D pteronyssinus <0.10 kU/L (Class 0); Dog Epithelia <0.10 kU/L (Class 0); Elm, American White <0.10 kU/L (Class 0); Immunoglobulin E 96 IU/mL (6-495); Maple/Box Elder <0.10 kU/L (Class 0); Mulberry, White <0.10 kU/L (Class 0); Oak, White <0.10 kU/L (Class 0); Pecan <0.10 kU/L (Class 0); Penicillium Notatum <0.10 kU/L (Class 0); Pigweed, Rough <0.10 kU/L (Class 0); Ragweed, Short/Common <0.10 kU/L (Class 0); Russian Thistle <0.10 kU/L (Class 0); Sheep Sorrel <0.10 kU/L (Class 0); Sycamore, American <0.10 kU/L (Class 0); Timothy Grass <0.10 kU/L (Class 0)
[2021-02-01 16:59] LABS: Mouse Urine <0.10 kU/L (Class 0)
== END ==
LOC: LAB 11:35
PROVIDERS: PCP Family Medicine; Referring Provider Otolaryngology; Visit Provider Otolaryngology
DX: T78.40XA Allergy, unspecified, initial encounter (principal)
CPT/HCPCS: 36415; 82785; 86003

== ENCOUNTER → 2021-03-16 13:22 | Outpatient (CLI) | payer OTHER, SELFPAY ==
--- NOTE | 2021-03-16 13:28 | CT_ITS ---
STUDY: CT FACIAL BONES WITHOUT CONTRAST REASON FOR EXAM: Female, 30 years old. SINUSITIS RADIATION DOSAGE (If Supplied By Facility): CTDIvol = ( 28.14 ) mGy, DLP = ( 802.47 ) mGycm TECHNIQUE: The patient was scanned in a multi detector CT scanner. Sagittal and coronal images were reconstructed. Individualized dose optimization techniques were used for this CT. COMPARISON: None. FINDINGS: Normal soft tissue structures. Normal orbital plata and orbital contents. Normal nasal bones and anterior nasal spine. Normal facial bones. There is no demonstrated fracture. Normal visualized paranasal sinuses. CT/Sinus/Facial Bone IMPRESSION: Normal unenhanced CT of the facial bones. Electronically Signed: Jovany De La Rosa MD at 14:27 EDT , Service support ,
== END ==
PROVIDERS: PCP Family Medicine; Referring Provider Otolaryngology; Visit Provider Otolaryngology
DX: J32.8 Other chronic sinusitis (principal)
CPT/HCPCS: 70486

== ENCOUNTER 2022-12-24 13:44 | Emergency (ER) | payer OTHER, SELFPAY ==
[2022-12-24 13:45] VITALS: BP 177/99; PULSE 105; RESP 16; TEMP 36.6; O2SAT 97; BMI 42.7
[2022-12-24 14:18] LABS: Bacteria 0 SEEN /hpf (None Seen); Mucous, Urine 0 SEEN /hpf (<or=2+); Red Blood Cells-Urine 0 SEEN /hpf (0-5); White Blood Cells 0 SEEN /hpf (0-5)
[2022-12-24 14:23] LABS: Color, Urine Yellow (Yellow); Glucose, Dipstick Normal (Normal); Ketone-Dipstick Negative (Negative); Leukocyte Esterase-Dipstick Negative /ul (Negative); Nitrite-Dipstick Negative (Negative); Occult Blood-Urine Negative /ul (Negative); Protein-Dipstick Negative (Negative); Specific Gravity, Urine 1.015 (1.002-1.030); Urine Bilirubin Dipstick Negative (Negative); Urine Clarity Clear (Clear); Urine Urobilinogen Normal (Normal)
[2022-12-24 14:25] LABS: Absolute Lymphocyte Count 2.33 X10^3/uL (0.83-4.51); Basophil# 0.08 X10^3/uL; Basophil% 0.8 % (0-1); Eosinophil# 0.69 X10^3/uL; Eosinophils% 7.2 % (0-5); Hematocrit 50.8 % (37-47); Hemoglobin 16.4 g/dL (12.0-15.0); Lymphocyte # 2.33 X10^3/ul (0.83-4.51); Lymphocyte % 24.5 % (19-41); Mean Corp Hgb Conc 32.3 g/dL (32-36); Mean Corpuscular Hgb 29.2 pg (27.0-32.0); Mean Corpuscular Volume 90.4 fL (81-99); Mean Platelet Vol. 8.5 fl (6.2-12.0); Monocyte# 0.45 X10^3/uL; Monocyte% 4.7 % (0-10); NRBC Flagged by Analyzer 0 % (0-5); Neutrophil # 5.96 X10^3/uL (2.7-7.7); Neutrophil % 62.7 % (47-70); Platelet Count 330 K/mm3 (150-450); RBC Distribution Width CV 12.3 % (11.6-14.6); RBC Distribution Width SD 40.3 fl (35.1-43.9); Red Blood Count 5.62 M/mm3 (4.2-5.4); White Blood Count 9.5 K/mm3 (4.4-11.0)
[2022-12-24 14:33] LABS: Anion Gap 6 (5-15); BUN 9 mg/dL (7-18); Calcium,Total 8.7 mg/dL (8.5-10.1); Chloride 111 mmol/L (98-107); Creatinine, Serum 0.64 mg/dL (0.55-1.02); EST Glomerular Filtration Rate 112 mL/min (>60); Est Glom Filt Rate - Afr Amer 136 mL/min (>60); Estimated Creatinine Clearance 124.94 ml/min; Glucose 105 mg/dL (74-106); Potassium 4.2 mmol/L (3.5-5.1); Sodium Level 142 mmol/L (136-145)
[2022-12-24 14:41] LABS: Squamous Epithelial Cells - UA 5-10 SEEN /hpf (5-10)
[2022-12-24 15:18] LABS: Internal QC Validated? YES +Cl - CLEAR BKGD; Pregnancy, Serum, hCG Quali. NEGATIVE Negative
[2022-12-24] MEDS: Mag Hydrox/Al Hydrox/Simeth 30 ML UDC PO (15:25)
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
--- NOTE | 2022-12-24 15:48 | ED.RN ---
physician okay'd for pt to take own Buspar.
[2022-12-24 15:53] LABS: AST(SGOT) 14 U/L (15-37); Alanine Aminotransfer ALT/SGPT 28 U/L (13-56); Albumin, Serum 3.6 g/dL (3.2-5.0); Alkaline Phosphatase 98 U/L (45-117); Bilirubin, Direct 0.06 mg/dL (0.00-0.30); Globulin 3.6 g/dL (2.2-4.2); Lipase 92 U/L (73-393); Protein, Total 7.2 g/dL (6.4-8.2)
== END 2022-12-24 16:35 | disposition home or self-care (01) ==
PROVIDERS: Emergency Provider Student in an Organized Health Care Education/Training Program; PCP Nurse Practitioner Primary Care; Visit Provider Student in an Organized Health Care Education/Training Program
DX: K29.70 Gastritis, unspecified, without bleeding (principal); F17.210 Nicotine dependence, cigarettes, uncomplicated; K21.9 Gastro-esophageal reflux disease without esophagitis; Z79.899 Other long term (current) drug therapy
CPT/HCPCS: 80048; 80076; 81001; 83690; 84703; 85025; 99283; A4216

== ENCOUNTER 2023-07-11 23:25 | Emergency (ER) | payer OTHER, SELFPAY ==
[2023-07-11 23:25] VITALS: BP 191/115; PULSE 86; RESP 24; TEMP 36.1; O2SAT 98; BMI 42.5
[2023-07-11 23:27] VITALS: BP 191/115; PULSE 81; RESP 24; TEMP 36.1; O2SAT 98
--- NOTE | 2023-07-12 00:08 | RAD_ITS ---
INDICATION: cough EXAMINATION/TECHNIQUE: X-RAY - XR Chest 2 Views COMPARISON: Prior studies dated: 05/02/2018 and 05/28/2017 FINDINGS: LINES/DEVICES: None. LUNGS: The lungs are well expanded. Multiple calcified nodules are seen bilaterally. No dense consolidation. No edema or effusion. No pneumothorax. MEDIASTINUM AND CARDIOVASCULAR STRUCTURES: Cardiac silhouette not enlarged. Central airways and mediastinal contour are unremarkable. Calcified mediastinal lymph nodes. BONES AND SOFT TISSUES: Unremarkable. RAD/Chest PA and Lateral IMPRESSION: No acute pulmonary finding. Electronically Signed: Romero Oneill MD at 0:46 EDT ,
--- NOTE | 2023-07-12 00:46 | EDS_ITS ---
HPI History of Present Illness Chief Complaint: Cold Sx Informant: patient Narrative Narrative: Upper respiratory illness for the past 4 days. Started with sinus congestion increasing drainage, now cough with productive sputum. Denies fevers. Mild muscle aches. Chest discomfort with cough. COVID vaccinated denies any COVID infections in the past. No home testing performed. Tobacco history. Had PE years ago due to oral contraceptives along with smoking together. Currently not on control. Wheezing at home. Denies asthma or COPD history. Prior similar symptoms: Yes PFSH PFSH Medical History Anxiety Depression Gastric reflux History of edema Pulmonary embolism Smoker Home Medications loratadine 10 mg tablet 10 mg PO DAILY 02/11/17 [History Last Taken 05/02/18] buspirone 7.5 mg tablet 7.5 mg PO BID 08/20/17 [History Last Taken 02/22/19 05:15 7.5 MG] desvenlafaxine succinate 50 mg tablet,extended release 24 hr (Pristiq) 50 mg PO QHS 10/28/17 [History Last Taken 05/02/18] omeprazole 20 mg capsule,delayed release 40 mg PO DAILY 10/28/17 [History Last Taken 02/22/19 05:15 40 MG] sucralfate 100 mg/mL oral suspension 1 g (10 mL) PO 4X/DAY #560 mL 01/23/18 [Rx Last Taken 05/02/18] dicyclomine 20 mg tablet 20 mg PO TID 02/15/19 [History Last Taken 02/22/19 05:15 20 MG] famotidine 40 mg tablet (Pepcid) 40 mg PO QHS 10/07/20 [History Last Taken Unknown] ferrous sulfate 325 mg (65 mg iron) tablet 325 mg PO BIDCM 10/07/20 [History Last Taken Unknown] Allergy/AdvReac Type Severity Reaction Status Date / Time almond Allergy Food Verified 07/11/23 23:25 Allergy hydrocodone [From [place]] AdvReac Itching Verified 07/11/23 23:25 Surgical History Hx laparoscopic cholecystectomy Hx of sinus surgery Hx of tonsillectomy Social History Smoking Status: Current every day smoker tobacco type: cigarettes ROS ROS ED Constitutional Constitutional ED: Denies chills, fever(s) or sweats Eyes Eyes: Denies change in vision ENT ENT ED: Reports rhinorrhea; Denies dysphagia or sore throat Cardiovascular Cardiovascular: Denies chest pain, leg edema, palpitations or racing heartbeat Respiratory/Chest Respiratory/Chest: Reports cough; Denies dyspnea or dyspnea on exertion Gastrointestinal Gastrointestinal: Denies abdominal pain, diarrhea, nausea or vomiting Genitourinary Genitourinary ED: Denies dysuria, hematuria or urinary frequency Musculoskeletal Musculoskeletal: Denies back pain, extremity pain or neck pain Integumentary Denies rash or wounds Neurologic Neurologic: Denies headache(s), paresthesias or weakness EXAM Physical Exam Const Vital Signs: 07/11/23 23:25 07/11/23 23:27 07/12/23 01:35 Temperature 97 F L 97 F L Temperature Source Temporal Temporal Pulse Rate 86 81 Respiratory Rate 24 H 24 H Blood Pressure 191/115 H 191/115 H 154/105 H Blood Pressure Mean 140 140 Pulse Ox 98 98 Positive well nourished and well developed Constitutional Narrative: Nontoxic General Appearance ED: well developed and NAD HEENT Reports moist mucous membranes normocephalic and atraumatic Eyes PERRL, EOMs intact bilaterally and conjunctivae normal General Eye ED: Yes normal appearance of both eyes Neck no lymphadenopathy and supple General: Negative for tenderness Chest Wall Chest: Negative for tenderness Resp normal respiratory effort Resp Narrative: Mild rhonchi lower lobes, no distress. Effort and Inspection: symmetric chest movement; Negative for respiratory distress Cardio regular rate, regular rhythm and no murmurs Peripheral Pulses: pulses 2+ throughout GI normal to inspection, nondistended, normoactive bowel sounds and non-tender Palpation: Negative for guarding or rebound tenderness present Back/Spine no CVA tenderness and no thoracic nor lumbar tenderness Extremity normal to inspection General Extremety ED: Negative for edema or tenderness General Extremity: Negative for edema Neuro oriented x3 and no sensory deficits noted Sensorium / Orientation: awake and alert Skin no rashes or lesions noted and no wounds MDM MDM MDM Narrative Medical decision making narrative: Interventions / MDM: Differential diagnosis: Viral syndrome with bronchospasms, elevated blood pressure asymptomatic Diagnosis considered but do not suspect: Pneumonia however negative chest x-ray My EKG interpretation: N/A Imaging independently reviewed and interpreted by myself: 2 view chest x-ray no acute process also read by radiology. External documents reviewed: N/A Test considered but not ordered:N/A ED course: Nontoxic mild rhonchi, MDI inhaler ordered. Chest x-ray ordered. COVID and flu ordered. Results negative. Elevated blood pressure on arrival reporting a small cuff was used in the triage. This will be rechecked. She is asymptomatic. She has no history of hypertension. I discussed viral syndrome with the patient. Discussed additional adjunct therapies for which she is using vapor rubs, discussed humidifiers. She will continue oral fluids hydration and use inhaler as needed. Outpatient follow with her PCP. All questions were answered. Blood pressure prior to discharge 154/105. Re-evaluation: stable Disposition discussed with patient/family/significant other: Patient Case discussed with consulting clinician: N/A This note was generated with Identify dictation software. It may contain incorrect words, spelling, and punctuation that were not noted in checking the note before signing. Radiography Diagnostic Testing: Clinical Impression(s) from Imaging Studies Chest X-Ray 07/12/23 00:08 IMPRESSION: No acute pulmonary finding. Electronically Signed: Romero Oneill MD at 0:46 EDT Reading Location ID and State: [address] [place] [address] Tel , Service support , Discharge Plan Triage Chief Complaint: Cold Sx ED Provider: Sreedhar Hickman Dx/Rx/DC Orders Clinical Impression: Tobacco dependence, Viral URI with cough, Wheezing, Elevated blood pressure reading Instructions: ED URI, Viral W/ Wheezing (Adult) Prescriptions: No Action loratadine 10 MG tablet 10 mg PO DAILY Patient Comments: ALLERGIES buspirone 7.5 MG tablet 7.5 mg PO BID omeprazole 20 MG capsule 40 mg PO DAILY desvenlafaxine succinate [Pristiq] 50 MG tablet 50 mg PO QHS sucralfate 1 GM/10 ML suspension 1 g PO 4X/DAY Qty: 560 0RF dicyclomine 20 MG tablet 20 mg PO TID famotidine [Pepcid] 40 MG tablet 40 mg PO QHS ferrous sulfate 325 MG tablet 325 mg PO BIDCM Primary Care Provider: Yenny Michel NP Referrals: [facility],Yenny SALES OPERATIONS MANAGER, SALES OPERATIONS MANAGER-C [Primary Care Provider] - 1 Week if not improving Activity Restrictions/Additional Instructions: Chest x-ray negative. COVID influenza negative. Use inhaler as needed for wheezing. Continue oral fluids for hydration at home. Try to stop smoking. Follow-up with your doctor for blood pressure recheck. Disposition Disposition: Home, Self Care Discharge Date/Time: 07/12/23 01:36
[2023-07-12] MEDS: Albuterol Sulfate 8 gm Inhaler (60 puffs) 2 PUFF INHALATION (00:47)
[2023-07-12 01:35] VITALS: BP 154/105
== END 2023-07-12 01:36 | disposition home or self-care (01) ==
PROVIDERS: Emergency Provider Emergency Medicine; PCP Nurse Practitioner Primary Care; Visit Provider Emergency Medicine
DX: J06.9 Acute upper respiratory infection, unspecified (principal); F17.210 Nicotine dependence, cigarettes, uncomplicated; R06.2 Wheezing; R03.0 Elevated blood-pressure reading, without diagnosis of hypertension
CPT/HCPCS: 71046; 87428; 94640; 99282

== ENCOUNTER 2025-01-18 16:37 | Emergency (ER) | payer OTHER, SELFPAY ==
[2025-01-18 16:40] VITALS: BP 148/101; PULSE 75; RESP 18; TEMP 35.9; O2SAT 98; BMI 46.9
--- NOTE | 2025-01-18 18:59 | ED.RN ---
Patient states she does not have a dentist and has not followed up due to not having one. Has been treated multiple times for same issue in same location per patient.
--- NOTE | 2025-01-18 19:15 | ED.VIS.DENTA ---
HPI History of Present Illness Chief Complaint: Dental PFSH PFS Medical History Anxiety Depression Gastric reflux History of edema Pulmonary embolism Smoker Home Medications ?Medication ?Instructions ?Recorded ?Last Taken ?Type loratadine 10 mg tablet 10 mg PO DAILY 02/11/17 05/02/18 History buspirone 7.5 mg tablet 7.5 mg PO BID 08/20/17 02/22/19 05:15 History 7.5 MG desvenlafaxine succinate 50 mg 50 mg PO QHS 10/28/17 05/02/18 History tablet,extended release 24 hr (Pristiq) omeprazole 20 mg capsule,delayed 40 mg PO DAILY 10/28/17 02/22/19 05:15 History release 40 MG sucralfate 100 mg/mL oral 1 g (10 mL) PO 4X/DAY #560 mL 01/23/18 05/02/18 Rx suspension dicyclomine 20 mg tablet 20 mg PO TID 02/15/19 02/22/19 05:15 History 20 MG famotidine 40 mg tablet (Pepcid) 40 mg PO QHS 10/07/20 Unknown History ferrous sulfate 325 mg (65 mg 325 mg PO BIDCM 10/07/20 Unknown History iron) tablet Allergy/AdvReac Type Severity Reaction Status Date / Time melatonin Allergy Mild headache Verified 01/18/25 16:40 almond Allergy Food Verified 01/18/25 16:40 Allergy hydrocodone (From [place]) AdvReac Itching Verified 01/18/25 16:40 Surgical History Hx laparoscopic cholecystectomy Hx of sinus surgery Hx of tonsillectomy Social History Smoking Status: Current every day smoker tobacco type: cigarettes EXAM Physical Exam Const Vital Signs: 01/18/25 16:40 Temperature 96.6 F L Temperature Source Temporal Pulse Rate 75 Respiratory Rate 18 Blood Pressure 148/101 H Blood Pressure Mean 116 Pulse Ox 98 Oxygen Delivery Method Room Air MDM MDM MDM Narrative Medical decision making narrative: HISTORY OF PRESENT ILLNESS: 34-year-old female presents with dental pain headache. She states this began []. She now she is on Augmentin. She notes the pain is not improved. REVIEW OF SYSTEMS: Pertinent positives: Dental pain, headache Pertinent negatives: Difficulty swallowing, neck pain PHYSICAL EXAM: Nursing triage notes reviewed, Vital signs reviewed Constitutional: please see mdm HENT: MMM, poor dentition, multiple areas of dental erosion and dental caries. No evidence of dental abscess, no submandibular edema or induration, no tonsillar exudates or erythema, uvula midline, patient was controlling secretions, no drooling, no trimus, no dysphonia Eyes: Pupils equal round and reactive to light, Extraocular muscles intact Neck: No stridor, no JVD, full neck ROM Lungs: Clear to auscultation, No wheezing or rales. No increased work of breathing, no conversational dyspnea, no accessory muscle use, no nasal flaring. No respiratory distress noted Heart: Regular rate and rhythm, No murmurs, No rubs and No gallops, 2+ distal pulses (radial, femoral, posterior tibial) in all extremities MEDICAL DECISION MAKING: Chief Complaint: Dental pain External records reviewed: Reviewed prior ED evaluations, prior imaging Factors affecting care: Anxiety, PE Social determinants of health: History obtained from others: Consults: None [facility] Narrative: The patient was hemodynamically stable, afebrile, nontoxic-appearing. Exam with poor dentition, dental caries. No sign of dental abscess. No submandibular edema. I considered the following differential diagnosis: Dental abscess, ANUG, Ludewig's angina, RPA, WAREHOUSE DRIVER, dental caries, gingivitis Perform dental block with bupivacaine. Injected approximately 4 ccs of 0.5 suprapubic pain to superior to the left upper incisor, perform a infraorbital nerve block. verbal consent was obtained prior to procedure.Plunger drawn black with no flash of blood. Risk benefits were discussed. Digital block performed with successful anesthesia. Encourage patient continue take antibiotics. Her to take Tylenol and ibuprofen and gave dental resources. Strict return precautions were discussed. Shared decision making: I will have a discussion with the patient and or visitors regarding risk/benefits of further testing or admission. They will be made aware of of the risk/benefits inherent in this decision they will be given the opportunity to voice understanding. Impression: 1. Acute dental pain Disposition: Discharge This note was generated with Cyan dictation software. It may contain incorrect words, spelling, and punctuation that were not noted in review of the chart prior to signing. Discharge Plan Triage Chief Complaint: Dental ED Provider: Rafal Christine Dx/Rx/DC Orders Prescriptions: No Action loratadine 10 MG tablet 10 mg PO DAILY Patient Comments: ALLERGIES buspirone 7.5 MG tablet 7.5 mg PO BID omeprazole 20 MG capsule 40 mg PO DAILY desvenlafaxine succinate [Pristiq] 50 MG tablet 50 mg PO QHS sucralfate 1 GM/10 ML suspension 1 g PO 4X/DAY Qty: 560 0RF dicyclomine 20 MG tablet 20 mg PO TID famotidine [Pepcid] 40 MG tablet 40 mg PO QHS ferrous sulfate 325 MG tablet 325 mg PO BIDCM Primary Care Provider: Yenny Michel NP Referrals: Yenny Michel NP, AUTO PAINTER-C [Primary Care Provider] - Print Language: Arabic
== END 2025-01-18 20:09 | disposition home or self-care (01) ==
PROVIDERS: Emergency Provider Emergency Medicine; PCP Nurse Practitioner Primary Care; Visit Provider Emergency Medicine
DX: K08.89 Other specified disorders of teeth and supporting structures (principal); F41.9 Anxiety disorder, unspecified; K02.9 Dental caries, unspecified; K21.9 Gastro-esophageal reflux disease without esophagitis; F17.210 Nicotine dependence, cigarettes, uncomplicated; R51.9 Headache, unspecified
CPT/HCPCS: 99282